=== PATIENT | male | born 1980 | race Caucasian/White ===

== ENCOUNTER 2017-06-13 14:51 | Inpatient (IN) | payer OTHER ==
[2017-06-13 15:42] LABS: AUTOMATED NEUTROPHIL # 10.1 TH/MM3 (1.8-7.7); BASOPHIL # 0.1 TH/MM3 (0-0.2); BASOPHIL % 0.6 % (0.0-2.0); EOSINOPHIL # 0.1 TH/MM3 (0-0.4); EOSINOPHIL % 0.9 % (0.0-4.0); HEMATOCRIT 53.9 % (39.0-51.0); HEMO FLAGS DIFF FINAL; HEMOGLOBIN 18.2 GM/DL (13.0-17.0); LYMPH % 22.4 % (9.0-44.0); LYMPHOCYTE # 3.2 TH/MM3 (1.0-4.8); MEAN CELL VOLUME 90.9 FL (80.0-100.0); MEAN CORPUSCULAR HEMOGLOBIN 30.7 PG (27.0-34.0); MEAN CORPUSCULAR HGB CONC 33.8 % (32.0-36.0); MEAN PLATELET VOLUME 8.8 FL (7.0-11.0); MONO % 4.8 % (0.0-8.0); MONOCYTE # 0.7 TH/MM3 (0-0.9); NEUT % 71.3 % (16.0-70.0); PLATELET COUNT 221 TH/MM3 (150-450); RED BLOOD COUNT 5.93 MIL/MM3 (4.50-5.90); RED CELL DISTRIBUTION WIDTH 13.1 % (11.6-17.2); WHITE BLOOD COUNT 14.1 TH/MM3 (4.0-11.0)
[2017-06-13] MEDS: LORazepam 2 MG/ML VIAL IV PUSH (16:00)
[2017-06-13 16:01] LABS: APTT (PATIENT) 26.4 SEC (24.3-30.1); PROTHROMBIN TIME - PATIENT 10.6 SEC (9.8-11.6)
[2017-06-13 16:09] LABS: ALBUMIN 4.3 GM/DL (3.4-5.0); ALT (GPT) 54 U/L (12-78); ANION GAP 24 MEQ/L (5-15); AST (GOT) 31 U/L (15-37); BICARBONATE 8.3 MEQ/L (21.0-32.0); BLOOD UREA NITROGEN 22 MG/DL (7-18); CALCIUM 8.6 MG/DL (8.5-10.1); CHLORIDE 107 MEQ/L (98-107); CREATININE 1.73 MG/DL (0.60-1.30); GLOMERULAR FILTRATION RATE 45 ML/MIN (>89); GLUCOSE,RANDOM 153 MG/DL (74-106); SODIUM (NA) 139 MEQ/L (136-145)
[2017-06-13] MEDS: SODIUM CHLORID 0.9% 500 ML INJ 500 ML IV ×2 (16:10→16:54)
[2017-06-13 16:11] LABS: POTASSIUM 4.5 MEQ/L (3.5-5.1)
[2017-06-13 16:17] LABS: ALKALINE PHOSPHATASE 81 U/L (45-117); CREATINE KINASE 406 U/L (39-308); TOTAL BILIRUBIN ADULT 0.3 MG/DL (0.2-1.0); TOTAL PROTEIN 8.5 GM/DL (6.4-8.2); TROPONIN I LESS THAN 0.02 NG/ML (0.02-0.05)
[2017-06-13 16:30] LABS: CKMB 1.3 NG/ML (0.5-3.6); CKMB % 0.3 % (0.0-4.0)
[2017-06-13 17:24] LABS: BLOOD GAS BASE EXCESS -6.5 mmol/L (-2-2); BLOOD GAS CARBOXYHEMOGLOBIN 3.5 % (0-4); BLOOD GAS HCO3 18 mmol/L (22-26); BLOOD GAS METHEMOGLOBIN 0.9 % (0-2); BLOOD GAS O2 HGB SATURATION 89 % (90-100); BLOOD GAS OXYGEN CONTENT 21.8 Vol % (12.0-20.0); BLOOD GAS PCO2 36 mmHg (38-42); BLOOD GAS PO2 74 mmHG (61-120); BLOOD GAS TOTAL HGB 17.4 G/DL (12.0-16.0); TEMP CORR TO 98.6
[2017-06-13 17:25] LABS: CRITICAL VALUE YES; DRAW SITE RT RADIAL; FIO2 21 %; NUMBER OF ARTERIAL PUNCTURES 1; STAT YES; ULNAR PULSE PRESENT
[2017-06-13] MEDS ORDERED: SODIUM CHLORIDE 0.9% FLUSH 10 ML FLUSH IV FLUSH (19:00)
[2017-06-13] MEDS ORDERED: NALOXONE HCL 0.4 MG/ML AMP IV PUSH (19:00)
[2017-06-13] MEDS ORDERED: VANCOMYCIN INJ 1 MG in SODIUM CHLOR 0.9% 250 ML INJ 250 ML IV (19:42)
[2017-06-13] MEDS: SODIUM CHLOR 0.9% 1000 ML INJ 1,000 ML IV (21:15)
[2017-06-13] MEDS: metroNIDAZOLE 500 MG INJ 100 ML IV (21:16)
[2017-06-13] MEDS: SODIUM CHLORIDE 0.9% FLUSH 10 ML FLUSH IV FLUSH (21:16)
[2017-06-13] MEDS: PIPERACIL-TAZO 4.5 GM PREMIX 100 ML IV (23:14)
[2017-06-13] MEDS: PIPERACIL-TAZO 3.375 GM PREMIX 50 ML IV (23:26)
[2017-06-14] MEDS: ONDANSETRON HCL 4 MG/2 ML VIAL IVP (00:41)
[2017-06-14] MEDS: PIPERACIL-TAZO 4.5 GM PREMIX 100 ML IV ×2 (06:18→13:20)
[2017-06-14 07:15] LABS: AUTOMATED NEUTROPHIL # 8.5 TH/MM3 (1.8-7.7); BASOPHIL % 0.3 % (0.0-2.0); HEMATOCRIT 45.8 % (39.0-51.0); HEMO FLAGS DIFF FINAL; HEMOGLOBIN 15.8 GM/DL (13.0-17.0); LYMPH % 17.6 % (9.0-44.0); LYMPHOCYTE # 2.2 TH/MM3 (1.0-4.8); MEAN CELL VOLUME 88.4 FL (80.0-100.0); MEAN CORPUSCULAR HEMOGLOBIN 30.5 PG (27.0-34.0); MEAN CORPUSCULAR HGB CONC 34.5 % (32.0-36.0); MEAN PLATELET VOLUME 8.4 FL (7.0-11.0); MONO % 13.5 % (0.0-8.0); MONOCYTE # 1.7 TH/MM3 (0-0.9); NEUT % 68.6 % (16.0-70.0); PLATELET COUNT 150 TH/MM3 (150-450); RED BLOOD COUNT 5.18 MIL/MM3 (4.50-5.90); RED CELL DISTRIBUTION WIDTH 13.1 % (11.6-17.2); WHITE BLOOD COUNT 12.3 TH/MM3 (4.0-11.0)
[2017-06-14 07:29] LABS: LACTIC ACID SEPSIS PROTOCOL 1.2 mmol/L (0.4-2.0)
[2017-06-14 07:51] LABS: ANION GAP 11 MEQ/L (5-15); BICARBONATE 19.3 MEQ/L (21.0-32.0); BLOOD UREA NITROGEN 32 MG/DL (7-18); CALCIUM 8.2 MG/DL (8.5-10.1); CHLORIDE 112 MEQ/L (98-107); GLOMERULAR FILTRATION RATE 23 ML/MIN (>89); GLUCOSE,RANDOM 117 MG/DL (74-106); POTASSIUM 4.2 MEQ/L (3.5-5.1); SODIUM (NA) 142 MEQ/L (136-145)
[2017-06-14 08:26] LABS: CREATINE KINASE 11418 U/L (39-308)
[2017-06-14 08:57] LABS: CKMB 4.9 NG/ML (0.5-3.6)
[2017-06-14] MEDS: SODIUM CHLORIDE 0.9% FLUSH 10 ML FLUSH IV FLUSH ×2 (09:00→22:45)
[2017-06-14] MEDS: SODIUM CHLOR 0.9% 1000 ML INJ 1,000 ML IV ×2 (17:18→23:15)
[2017-06-14] MEDS ORDERED: PIPERACIL-TAZO 3.375 GM PREMIX 50 ML IV (19:00)
[2017-06-14 21:45] LABS: HEMOGLOBIN A1C 5.9 % (4.3-6.0); HEMOGLOBIN A1b 1.9 %; HEMOGLOBIN Ao 84.2 %; HEMOGLOBIN LA1C 2.1 %; HEMOGLOBIN P3 4.1 %
[2017-06-14 23:46] LABS: BILIRUBIN, URINE NEG (NEG); BLOOD, URINE SMALL (NEG); COMMENT (UR) CULT NOT INDICATED; CULTURE IF INDICATED CULT NOT INDICATED; GLUCOSE,URINE NEG (NEG); KETONE, URINE NEG (NEG); NITRITE,URINE NEG (NEG); PH, URINE 5.5 (5.0-8.5); RENAL EPITHELIAL CELLS <1 /hpf; URINE COLOR LIGHT-YELLOW (YELLW/STRAW); URINE LEUKOCYTE ESTERASE SMALL (NEG)
[2017-06-14 23:48] LABS: AMPHETAMINE, URINE NEG (NEG); BARBITURATES, URINE NEG (NEG); BENZODIAZEPINE,URINE NEG (NEG); CANNABINOIDS, URINE NEG (NEG); COCAINE, URINE NEG (NEG)
[2017-06-15] MEDS: SODIUM CHLOR 0.9% 1000 ML INJ 1,000 ML IV ×5 (04:20→17:06)
[2017-06-15 06:15] LABS: AUTOMATED NEUTROPHIL # 7.6 TH/MM3 (1.8-7.7); BASOPHIL % 0.1 % (0.0-2.0); EOSINOPHIL % 0.5 % (0.0-4.0); HEMO FLAGS DIFF FINAL; HEMOGLOBIN 14.8 GM/DL (13.0-17.0); LYMPH % 16.2 % (9.0-44.0); LYMPHOCYTE # 1.7 TH/MM3 (1.0-4.8); MEAN CELL VOLUME 89.6 FL (80.0-100.0); MEAN CORPUSCULAR HEMOGLOBIN 30.9 PG (27.0-34.0); MEAN CORPUSCULAR HGB CONC 34.4 % (32.0-36.0); MONOCYTE # 1.2 TH/MM3 (0-0.9); NEUT % 72.2 % (16.0-70.0); PLATELET COUNT 131 TH/MM3 (150-450); RED CELL DISTRIBUTION WIDTH 13.3 % (11.6-17.2); WHITE BLOOD COUNT 10.5 TH/MM3 (4.0-11.0)
[2017-06-15 06:57] LABS: ALBUMIN 3.1 GM/DL (3.4-5.0); ALT (GPT) 35 U/L (12-78); ANION GAP 10 MEQ/L (5-15); AST (GOT) 76 U/L (15-37); BICARBONATE 18.7 MEQ/L (21.0-32.0); BLOOD UREA NITROGEN 42 MG/DL (7-18); CALCIUM 7.7 MG/DL (8.5-10.1); CHLORIDE 114 MEQ/L (98-107); CREATININE 3.88 MG/DL (0.60-1.30); GLOMERULAR FILTRATION RATE 18 ML/MIN (>89); GLUCOSE,RANDOM 88 MG/DL (74-106); MAGNESIUM 2.7 MG/DL (1.5-2.5); PHOSPHORUS 4.5 MG/DL (2.5-4.9); SODIUM (NA) 143 MEQ/L (136-145)
[2017-06-15 07:13] LABS: ALKALINE PHOSPHATASE 51 U/L (45-117); CREATINE KINASE 7625 U/L (39-308); TOTAL BILIRUBIN ADULT 0.3 MG/DL (0.2-1.0); TOTAL PROTEIN 6.4 GM/DL (6.4-8.2)
[2017-06-15 07:45] LABS: CKMB 3.4 NG/ML (0.5-3.6)
[2017-06-15] MEDS: SODIUM CHLORIDE 0.9% FLUSH 10 ML FLUSH IV FLUSH ×2 (08:58→20:29)
[2017-06-15] MEDS: ONDANSETRON HCL 4 MG/2 ML VIAL IVP (17:33)
[2017-06-15 17:51] LABS: C. DIFF EPI 027 PRESUMPTIVE NEGATIVE (NEGATIVE); C. DIFF TOXIN PCR NEGATIVE (NEGATIVE)
[2017-06-16 05:00] LABS: HEMATOCRIT 43.1 % (39.0-51.0); HEMOGLOBIN 14.9 GM/DL (13.0-17.0); MEAN CELL VOLUME 90.7 FL (80.0-100.0); MEAN CORPUSCULAR HEMOGLOBIN 31.4 PG (27.0-34.0); MEAN CORPUSCULAR HGB CONC 34.6 % (32.0-36.0); PLATELET COUNT 137 TH/MM3 (150-450); RED BLOOD COUNT 4.75 MIL/MM3 (4.50-5.90); RED CELL DISTRIBUTION WIDTH 13.5 % (11.6-17.2); REVIEW FLAG FINAL; WHITE BLOOD COUNT 9.5 TH/MM3 (4.0-11.0)
[2017-06-16 05:34] LABS: ANION GAP 8 MEQ/L (5-15); BICARBONATE 24.6 MEQ/L (21.0-32.0); BLOOD UREA NITROGEN 36 MG/DL (7-18); CALCIUM 8.5 MG/DL (8.5-10.1); CHLORIDE 114 MEQ/L (98-107); GLOMERULAR FILTRATION RATE 23 ML/MIN (>89); GLUCOSE,RANDOM 132 MG/DL (74-106); POTASSIUM 4.9 MEQ/L (3.5-5.1); SODIUM (NA) 147 MEQ/L (136-145)
[2017-06-16 05:43] LABS: CREATINE KINASE 3714 U/L (39-308)
[2017-06-16 06:04] LABS: CKMB 1.6 NG/ML (0.5-3.6)
[2017-06-16] MEDS: SODIUM CHLORIDE 0.9% FLUSH 10 ML FLUSH IV FLUSH ×2 (09:00→21:00)
[2017-06-16] MEDS: LOPERAMIDE HCL 2 MG CAP PO (14:40)
[2017-06-16] MEDS: SODIUM BICARBONATE 8.4% INJ 50 MEQ in SODIUM CHLOR 0.45% 1000 ML INJ 1,000 ML IV ×2 (15:52→22:54)
[2017-06-17] MEDS: SODIUM BICARBONATE 8.4% INJ 50 MEQ in SODIUM CHLOR 0.45% 1000 ML INJ 1,000 ML IV ×3 (05:20→12:30)
[2017-06-17] MEDS: SODIUM CHLORIDE 0.9% FLUSH 10 ML FLUSH IV FLUSH (09:00)
[2017-06-17] MEDS: LOPERAMIDE HCL 2 MG CAP PO (10:58)
[2017-06-17 12:09] LABS: ANION GAP 6 MEQ/L (5-15); BLOOD UREA NITROGEN 24 MG/DL (7-18); CALCIUM 8.7 MG/DL (8.5-10.1); CHLORIDE 111 MEQ/L (98-107); CREATININE 1.85 MG/DL (0.60-1.30); GLOMERULAR FILTRATION RATE 41 ML/MIN (>89); GLUCOSE,RANDOM 93 MG/DL (74-106); POTASSIUM 4.1 MEQ/L (3.5-5.1); SODIUM (NA) 142 MEQ/L (136-145)
== END 2017-06-17 15:54 | disposition home or self-care (01) | DRG 682 ==
LOC: N04A 06-16 14:50 → NEPC 14:51 → NEDA 17:54 → NEPFCDU 19:53
DX: N17.9 Acute kidney failure, unspecified (principal); J96.01 Acute respiratory failure with hypoxia; T75.1XXA Unspecified effects of drowning and nonfatal submersion, initial encounter; J18.9 Pneumonia, unspecified organism; M62.82 Rhabdomyolysis; E87.2 Acidosis; D72.829 Elevated white blood cell count, unspecified; R73.9 Hyperglycemia, unspecified; Z72.0 Tobacco use
CPT/HCPCS: 36600; 71045; 76775; 76937; 80048; 80053; 80307; 81001; 82550; 82552; 82805; 83036; 83605; 83735; 84100; 84443; 84484; 85025; 85027; 85610; 85730; 87493; 93005; 94150; 96360; 99285-25